=== PATIENT | female | born 1960 | race Caucasian/White ===

== ENCOUNTER 2016-08-21 08:34 | Day surgery (SDC) | payer OTHER ==
[2016-08-21] MEDS: Lactated Ringer's 500 ML IV ONE (09:28)
[2016-08-21] MEDS ORDERED: Midazolam 2 MG/2 ML VIAL ONE (11:13)
[2016-08-21] MEDS ORDERED: Propofol 10 mg/ml Inj (20 ML) ONE (11:22)
[2016-08-21 11:50] VITALS: TEMP 97.5
[2016-08-21 12:13] VITALS: BP 113/67; PULSE 61; RESP 17; O2SAT 100
== END 2016-08-21 12:14 | disposition home or self-care (01) ==
LOC: H.ENDO 08:34
PROVIDERS: ATTEND Internal Medicine Gastroenterology
DX: Z12.11 Encounter for screening for malignant neoplasm of colon (principal); K64.8 Other hemorrhoids